=== PATIENT | male | born 1935 | race Caucasian/White ===

== ENCOUNTER 2017-06-23 18:25 | Emergency (ER) | payer OTHER ==
[~2017-06-23] VITALS: Ht 180.3 cm; Wt 115.7 kg
[~2017-06-23 18:25] MED LIST: AMBIEN10 MG PO; CLINDAMYCIN HC300 MG PO; COL100 PO; DUONEB3 ML NEB; ECO81 PO; HEP5I SC; LAC PO; LASIX20 MG; LEVAQUIN750 MG PO; MEDDP PO; METFORMIN ER500 M1 PO; PULMICORT0.5 MG/2 M IH; ZOS3PM IV
[2017-06-23 18:50] VITALS: Ht 180.3 cm; Wt 115.7 kg
[2017-06-23 20:17] LABS: UA SPECIFIC GRAVITY 1.015 (1.005-1.035); microscopic required? YES; urine erythrocyte 1+ (NEGATIVE)
[2017-06-23 20:20] LABS: BASOPHIL % 0.2 % (0-2); PLATELET COUNT 134 x10^3mcL (130-400); RED CELL DISTRIBUTION WIDTH 14.3 % (11.5-14.5)
[2017-06-23 20:29] LABS: CALCIUM 8.7 mg/dL (8.5-10.1); CHLORIDE SERUM 102 mmol/L (98-107); CREATININE SERUM 0.7 mg/dL (0.7-1.3); GLUCOSE SERUM 103 mg/dL (74-106); POTASSIUM SERUM 3.9 mmol/L (3.5-5.1); SODIUM SERUM 135 mmol/L (136-145)
[2017-06-23 20:54] LABS: AMPHETAMINE QUAL UR NONE DETECTED (NEG <=1000)
[2017-06-23 20:59] LABS: ALBUMIN 3.3 g/dL (3.4-5.0); ALKALINE PHOSPHATASE 72 U/L (46-116); ALT/SGPT 35 U/L (16-63); AMYLASE 68 U/L (25-115); BILIRUBIN TOTAL 0.87 mg/dL (0.20-1.00); CHOLESTEROL 168 mg/dL (<200); HDL CHOLESTEROL 49 mg/dL (40-60); T4(THYROXINE) 9.1 ug/dL (4.7-13.3); TOTAL PROTEIN, SERUM 7.3 g/dL (6.4-8.2)
[2017-06-23 21:13] LABS: AST/SGOT 46 U/L (15-37)
[2017-06-23 21:41] LABS: LIPASE 740 IU/L (73-393)
[2017-06-23] MEDS ORDERED: ELIQUIS5 MG PO (21:57)
[2017-06-23 23:47] VITALS: BP 158/85
[2017-06-24 00:05] LABS: MAGNESIUM 1.8 mg/dL (1.8-2.4); PHOSPHOROUS 2.3 mg/dL (2.5-4.9)
== END 2017-06-23 23:47 | disposition left against medical advice (07) ==
LOC: ED 18:25 → DU 21:48 → ED 23:47
PROVIDERS: Emergency Medicine; Family Medicine
DX: I25.10 Atherosclerotic heart disease of native coronary artery without angina pectoris (principal); I44.7 Left bundle-branch block, unspecified; E11.9 Type 2 diabetes mellitus without complications; R09.02 Hypoxemia
CPT/HCPCS: 36600; 83880; 87804; J1956; J2930; J7613; J7644; Q0092

== ENCOUNTER 2018-01-18 11:24 | Inpatient (IN) | payer OTHER ==
[~2018-01-18] VITALS: Ht 180.3 cm; Wt 111.2 kg
[~2018-01-18 11:24] MED LIST changes: +ELIQUIS5 MG PO
[2018-01-18 11:43] VITALS: Ht 180.3 cm; Wt 111.2 kg
[2018-01-18 13:36] LABS: BASOPHIL % 0.3 % (0-2); PLATELET COUNT 138 x10^3mcL (130-400)
[2018-01-18 13:45] LABS: CALCIUM 9.2 mg/dL (8.5-10.1); CARBON DIOXIDE 26.5 mmol/L (21-32); CHLORIDE SERUM 104 mmol/L (98-107); GLUCOSE SERUM 199 mg/dL (74-106); POTASSIUM SERUM 3.6 mmol/L (3.5-5.1); SODIUM SERUM 139 mmol/L (136-145)
[2018-01-18 13:50] LABS: ALKALINE PHOSPHATASE 79 U/L (46-116); ALT/SGPT 27 U/L (16-63); AST/SGOT 38 U/L (15-37); BILIRUBIN TOTAL 0.99 mg/dL (0.20-1.00); TOTAL PROTEIN, SERUM 7.2 g/dL (6.4-8.2)
[2018-01-18 13:53] LABS: ALBUMIN 3.2 g/dL (3.4-5.0)
[2018-01-18 13:57] LABS: RED CELL DISTRIBUTION WIDTH 15.6 % (11.5-14.5)
[2018-01-18 16:50] LABS: LIPASE 25810 IU/L (73-393)
[2018-01-18 17:33] VITALS: BP 164/93
[2018-01-18 20:36] VITALS: BP 145/74
[2018-01-18 22:00] LABS: UA SPECIFIC GRAVITY 1.025 (1.005-1.035); microscopic required? YES; urine erythrocyte 2+ (NEGATIVE)
[2018-01-19 05:22] VITALS: BP 144/78
[2018-01-19 09:45] VITALS: BP 135/70
[2018-01-19 14:03] VITALS: BP 137/72
[2018-01-19 17:20] VITALS: BP 143/77
[2018-01-19 20:51] VITALS: BP 135/72
[2018-01-20 05:52] VITALS: BP 131/65
[2018-01-20 06:37] LABS: CALCIUM 7.2 mg/dL (8.5-10.1); CARBON DIOXIDE 26.5 mmol/L (21-32); CHLORIDE SERUM 101 mmol/L (98-107); CREATININE SERUM 0.9 mg/dL (0.7-1.3); GLUCOSE SERUM 160 mg/dL (74-106); POTASSIUM SERUM 4.2 mmol/L (3.5-5.1); SODIUM SERUM 133 mmol/L (136-145)
[2018-01-20 06:50] LABS: LIPASE 1729 IU/L (73-393)
[2018-01-20 07:45] LABS: PLATELET COUNT 127 x10^3mcL (130-400); RED CELL DISTRIBUTION WIDTH 16.1 % (11.5-14.5)
[2018-01-20 09:00] VITALS: BP 126/71
[2018-01-20 09:13] LABS: BAND NEUTROPHIL 2 % (0-10); BASOPHIL 0 % (0-2); MONOCYTE 5 % (0-7); SEGMENTED NEUTROPHILS 93 % (37-75)
[2018-01-20 09:14] LABS: PLATELET MORPHOLOGY PLATELETS DECREASED; rbc morphology (normal/abnorm) ABNORMAL (NORMAL)
[2018-01-20 17:41] VITALS: BP 142/85
[2018-01-20 21:14] VITALS: BP 115/71
[2018-01-21 05:51] VITALS: BP 143/74
[2018-01-21 06:53] LABS: PLATELET COUNT 127 x10^3mcL (130-400); RED CELL DISTRIBUTION WIDTH 16.2 % (11.5-14.5)
[2018-01-21 07:06] LABS: CALCIUM 8.1 mg/dL (8.5-10.1); CARBON DIOXIDE 24.6 mmol/L (21-32); CHLORIDE SERUM 100 mmol/L (98-107); CREATININE SERUM 0.8 mg/dL (0.7-1.3); GLUCOSE SERUM 155 mg/dL (74-106); POTASSIUM SERUM 3.4 mmol/L (3.5-5.1); SODIUM SERUM 131 mmol/L (136-145)
[2018-01-21 10:20] VITALS: BP 135/70
[2018-01-21 10:46] LABS: BAND NEUTROPHIL 3 % (0-10); BASOPHIL 0 % (0-2); MONOCYTE 10 % (0-7); SEGMENTED NEUTROPHILS 79 % (37-75); rbc morphology (normal/abnorm) ABNORMAL (NORMAL)
[2018-01-21 13:46] VITALS: BP 145/83
[2018-01-21 17:50] VITALS: BP 139/67
[2018-01-21 20:49] VITALS: BP 160/88
[2018-01-22 05:33] VITALS: BP 160/88
[2018-01-22 05:36] VITALS: BP 140/73
[2018-01-22 06:39] LABS: CALCIUM 8.1 mg/dL (8.5-10.1); CARBON DIOXIDE 25.8 mmol/L (21-32); CHLORIDE SERUM 101 mmol/L (98-107); CREATININE SERUM 0.7 mg/dL (0.7-1.3); GLUCOSE SERUM 140 mg/dL (74-106); LIPASE 226 IU/L (73-393); POTASSIUM SERUM 3.5 mmol/L (3.5-5.1); SODIUM SERUM 132 mmol/L (136-145)
[2018-01-22 06:57] LABS: PLATELET COUNT 127 x10^3mcL (130-400); RED CELL DISTRIBUTION WIDTH 16.2 % (11.5-14.5)
[2018-01-22 09:40] VITALS: BP 120/67
[2018-01-22 10:16] LABS: BAND NEUTROPHIL 9 % (0-10); BASOPHIL 0 % (0-2); METAMYELOCTE 1 % (0-2); MONOCYTE 14 % (0-7); SEGMENTED NEUTROPHILS 69 % (37-75)
[2018-01-22 10:17] LABS: rbc morphology (normal/abnorm) ABNORMAL (NORMAL); tear drop cell (dacryocyte) 1+
[2018-01-22 10:18] LABS: burr cell (echinocyte) 1+
[2018-01-22 10:19] LABS: PLATELET MORPHOLOGY LARGE PLATELET SEEN
[2018-01-22 13:05] VITALS: BP 142/78
[2018-01-22 17:52] VITALS: BP 128/80
[2018-01-22 18:49] VITALS: BP 128/80
== END 2018-01-22 21:02 | disposition home or self-care (01) | DRG 438 ==
LOC: ED 11:24 → DU 16:10 → EDBEDREQ 16:15 → EDBEDREQSVC 16:16 → DU 17:20
PROVIDERS: Emergency Medicine; Internal Medicine
DX: K85.90 Acute pancreatitis without necrosis or infection, unspecified (principal); K65.9 Peritonitis, unspecified; I25.10 Atherosclerotic heart disease of native coronary artery without angina pectoris; I11.0 Hypertensive heart disease with heart failure; I50.9 Heart failure, unspecified; J45.909 Unspecified asthma, uncomplicated; J44.9 Chronic obstructive pulmonary disease, unspecified; E11.51 Type 2 diabetes mellitus with diabetic peripheral angiopathy without gangrene; I44.7 Left bundle-branch block, unspecified; E66.9 Obesity, unspecified; Z68.33 Body mass index [BMI] 33.0-33.9, adult; Z79.82 Long term (current) use of aspirin; Z79.84 Long term (current) use of oral hypoglycemic drugs
CPT/HCPCS: 83880; 84439; C9113; J0610; J2270; J2405; J2543; J2550; J3010; J3490; J7030; Q0092; Q9966; Q9967

== ENCOUNTER 2018-04-14 19:11 | Emergency (ER) | payer OTHER ==
[~2018-04-14] VITALS: Ht 180.3 cm; Wt 101.2 kg
[2018-04-14 19:13] VITALS: Ht 180.3 cm; Wt 101.2 kg
[2018-04-14 20:28] LABS: BASOPHIL % 0.5 % (0-2); PLATELET COUNT 153 x10^3mcL (130-400)
[2018-04-14 20:52] LABS: ALKALINE PHOSPHATASE 95 U/L (46-116); ALT/SGPT 16 U/L (16-63); AST/SGOT 20 U/L (15-37); BILIRUBIN TOTAL 0.5 mg/dL (0.20-1.00); CALCIUM 9.2 mg/dL (8.5-10.1); CARBON DIOXIDE 28.6 mmol/L (21-32); CHLORIDE SERUM 97 mmol/L (98-107); LIPASE 137 IU/L (73-393); POTASSIUM SERUM 3.7 mmol/L (3.5-5.1); SODIUM SERUM 133 mmol/L (136-145)
[2018-04-14 20:53] LABS: ALBUMIN 2.7 g/dL (3.4-5.0)
[2018-04-14 20:55] LABS: GLUCOSE SERUM 454 mg/dL (74-106)
[2018-04-14 23:04] VITALS: BP 132/75
== END 2018-04-14 23:04 | disposition home or self-care (01) ==
LOC: ED 19:11
PROVIDERS: Emergency Medicine
DX: E11.65 Type 2 diabetes mellitus with hyperglycemia (principal); R07.89 Other chest pain; M19.90 Unspecified osteoarthritis, unspecified site; I50.9 Heart failure, unspecified; I11.9 Hypertensive heart disease without heart failure; Z98.890 Other specified postprocedural states
CPT/HCPCS: 36600; 82962; 83880; J1815; J7030; Q0092